=== PATIENT | female | born 1975 | race Two or more races ===

== ENCOUNTER 2016-09-04 19:27 | Emergency (ER) | payer SELFPAY ==
[~2016-09-04] VITALS: Ht 157.5 cm; Wt 72.6 kg
[2016-09-04 20:20] LABS: Basophils # (auto) 0 uL; Basophils % (auto) 0.2 % (0.0-2.0); Eosinophils # (auto) 0.1 uL; Hematocrit 40.8 % (36.0-46.0); Lymphocytes # (auto) 2.1 uL; Mean Corpuscular Hemoglobin 30.4 pg (28.0-32.0); Mean Corpuscular Hgb Conc. 34.4 g/dL (32.0-36.0); Mean Corpuscular Volume 88.4 fL (80.0-100.0); Mean Platelet Volume 9.9 fL (7.4-10.4); Monocytes # (auto) 0.6 uL; Monocytes % (auto) 6.4 % (0.0-12.0); Neutrophils # (auto) 6.4 uL; Neutrophils % (auto) 69.4 % (37.0-80.0); Platelet Count (auto) 298 10^3/uL (140-450); Red Cell Distribution Width 13.1 % (11.6-16.0); White Blood Cell 9.2 10^3/uL (4.4-10.8)
[2016-09-04 20:46] LABS: BUN/Creatinine Ratio 16.2; Bilirubin, Total 2.8 mg/dL (0.2-1.0); Calcium 9.2 mg/dL (8.5-10.1); Potassium 3.4 mmol/L (3.5-5.1)
[2016-09-05] MEDS ORDERED: SODIUM CHLORIDE 0.9% 1,000 ML IV ONE (08:41)
[2016-09-05] MEDS ORDERED: InsuLIN REG 1unit/0.01ml Soln (100units/ml) IV ONE (08:45)
[2016-09-05 09:36] VITALS: BP 123/84
[2016-09-05 09:52] LABS: Amylase 21 U/L (25-115)
[2016-09-05] MEDS ORDERED: MECLIZINE HCL 25 MG TAB PO ONE (11:45)
[2016-09-05 11:53] LABS: Urine Bilirubin Negative (Negative); Urine Blood Negative /uL (Negative); Urine Color Yellow (Yellow); Urine Mucus FEW (None Seen); Urine Nitrite Negative (Negative); Urine RBC <1 /hpf (0 - 4); Urine Squamous Epithelial Cell FEW /hpf (<5); Urine Urobilinogen Normal (Negative)
[2016-09-05 12:06] LABS: Urine Glucose 4+ mg/dL (Normal); Urine Ketone 2+ (Negative)
== END 2016-09-05 12:15 | disposition home or self-care (01) ==
LOC: ER 19:27
DX: E11.65 Type 2 diabetes mellitus with hyperglycemia (principal); K52.9 Noninfective gastroenteritis and colitis, unspecified; E86.0 Dehydration
CPT/HCPCS: 36415; 70450; 76705; 80053; 81001; 81025; 82150; 82962; 83690; 84484; 85025; 93005; 96374; 99285; G0434; J1815; J8597